=== PATIENT | male | born 1985 | race American Indian/Alaskan Native ===

== ENCOUNTER 2018-04-24 03:10 | Emergency (ER) | payer SELFPAY ==
[2018-04-24 03:27] VITALS: BP 147/86
[2018-04-24] MEDS ORDERED: BOOSTRIX IM ONE (04:47)
[2018-04-24] MEDS ORDERED: NORCO 5/325 PO ONE (04:47)
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
== END 2018-04-24 05:40 | disposition home or self-care (01) ==
LOC: ED 03:10
DX: S01.01XA Laceration without foreign body of scalp, initial encounter (principal); F17.200 Nicotine dependence, unspecified, uncomplicated; Y04.2XXA Assault by strike against or bumped into by another person, initial encounter; Y93.89 Activity, other specified; Y99.8 Other external cause status; Y92.410 Unspecified street and highway as the place of occurrence of the external cause
CPT/HCPCS: 90471; 90715; 99282